=== PATIENT | male | born 1950 | race Caucasian/White ===

== ENCOUNTER 2020-08-31 07:54 | Day surgery (SDC) | payer MEDICARE, OTHER, SELFPAY ==
--- NOTE | 2020-08-25 15:43 | EKG12_ITS ---
Test Reason : PREOP Blood Pressure : / mmHG Vent. Rate : 080 BPM Atrial Rate : 080 BPM P-R Int : 138 ms QRS Dur : 072 ms QT Int : 370 ms P-R-T Axes : 032 -05 034 degrees QTc Int : 426 ms Normal sinus rhythm Normal ECG Confirmed by ZAFAR CHURCH, MICHELLE ([id number]), news video editor GRECIA NELSON ([id number]) on 08/31/2020 10:51:33 AM Referred By: Oleksandr Major Confirmed By:BISI STEPHEN MD
[2020-08-31] VITALS (12 sets, daily range): BP systolic 133–166; BP diastolic 78–97; PULSE 68–75; RESP 16–17; TEMP 36.3–37.2; O2SAT 95–100; BMI 31.0
[2020-08-31 08:22] LABS: Hematocrit 45.1 % (40-54); Hemoglobin 14.8 g/dL (13.0-16.5); Mean Corp Hgb Conc 32.8 g/dL (32-36); Mean Corpuscular Hgb 29.8 pg (27.0-32.0); Mean Corpuscular Volume 90.7 fL (80-94); Mean Platelet Vol. 8.7 fl (6.2-12.0); Platelet Count 298 K/mm3 (150-450); RBC Distribution Width SD 42.6 fl (35.1-43.9); Red Blood Count 4.97 M/mm3 (4.6-6.2); White Blood Count 8.3 K/mm3 (4.4-11.0)
[2020-08-31] MEDS: Lactated Ringers 1,000 ML 100 ML IV (08:49)
[2020-08-31 09:00] LABS: Anion Gap 5 (5-15); BUN 24 mg/dL (7-18); BUN/Creat Ratio 13.8 RATIO (10-20); Calcium,Total 9.3 mg/dL (8.5-10.1); Chloride 105 mmol/L (98-107); Creatinine, Serum 1.74 mg/dL (0.70-1.30); EST Glomerular Filtration Rate 41 mL/min (>60); Est Glom Filt Rate - Afr Amer 50 mL/min (>60); Estimated Creatinine Clearance 43.37 ml/min; Glucose 138 mg/dL (74-106); Potassium 4.1 mmol/L (3.5-5.1); Sodium Level 139 mmol/L (136-145)
[2020-08-31] MEDS: Cefazolin 2 GM in 0.9% Normal Saline 100 ML IV (09:48)
--- NOTE | 2020-08-31 10:00 | PROS_PTH ---
PATIENT: JONN CRESPO LOC: [facility] [place] U#:[id number] AGE/SX: 70/M ROOM: RE08/31/[address]: Dr. Oleksandr Major MD : [id number] BED: DIS: 09/01/2020 SPEC #: [id number] RECD: 08/31/20 11:55 STATUS: RANDAL REQ #: [id number] ADRIA: 08/31/20 10:[address]: Oleksandr Major DEPT: SURGICAL PATHOLOGY RECD BY: Mariel Beckett ENTERED: 08/31/20 12:23 SP TYPE: TURP OTHR DR: Dr. Selvin Hutson, DO Tissues: A - Prostate, NOS B - Prostate, NOS Procedures: Surgery Specimen Level IV HEADER OPERATION: Cysto, TUR prostate, [place], finger-guided prostate biopsy PRE-OP DIAGNOSIS: BPH with retention TISSUE SUBMITTED: A - Prostate biopsy, B - Prostate pieces MICROSCOPIC DIAGNOSIS A. Prostate, core biopsy: Prostatic tissue, negative for malignancy. Focal basal cell hyperplasia. B. Prostate pieces, TUR: Benign prostatic hyperplasia, glandular and stromal type. Focal acute and chronic inflammation. KEVYN:vamshi 09/01/20 COMMENT Clinical correlation and appropriate follow up are necessary. MICROSCOPIC DESCRIPTION Slides are reviewed. GROSS DESCRIPTION A - Received in fixative is one container labeled with the patient's name and designated prostate biopsy. The specimen consists of two elongated fragments of hanna soft tissue measuring 1 to 2 cm in length and 0.1 cm in diameter. The specimen is totally submitted in one cassette. B - Received is one container labeled with the patient's name and designated prostate pieces. The specimen consists of multiple irregular fragments of pink-hanna, rubbery, soft tissue that in aggregate weigh 4.6 gm and measure in aggregate 6.5 x 6.5 x 2 cm. A minute piece of brown round stone is also noted measuring 0.1 cm in greatest dimension. The entire soft tissue is submitted in one cassette. The stone is for gross identification only. The entire specimen is submitted in 12 cassettes. / SJ:vamshi 08/31/20 TC:5 CPT: 49378 x2
--- NOTE | 2020-08-31 10:00 | PCM.HP.STD ---
History of Present Illness Date of Admission: 08/31/20 Chief Complaint: BPH with obstruction The patient is a 70 year old male with a history of BPH with obstruction and also nodular prostate today we can proceed with a TURP and a prostate biopsy Past Medical History Allergies No Known Allergies Allergy (Verified 08/31/20 08:25) Home Medications: Ambulatory Orders Medication Instructions Recorded Acetaminophen [Tylenol Extra 1,000 mg PO DAILY 08/26/20 Strength] Surgical History: no surgical history Smoking Status: Never smoker Tobacco Use: Non-smoker Review of Systems Constitutional: Denies: Chills, Fever, Weight Change HEENT: Denies: Head Aches, Sinus Congestion, Sinus Drainage Cardiovascular: Denies: Chest Pain, Palpitations Respiratory: Denies: Cough, Shortness of breath at rest, Sputum production Gastrointestinal: Denies: Abdominal Pain, Nausea, Vomiting Genitourinary: Denies: Dysuria Musculoskeletal: Denies: Joint Pain, Joint Tenderness Skin: Denies: Rash, Wounds Neurological: Denies: Numbness, Tingling, Focal weakness Psychiatric: Denies: Anxiety, Depression, Homicidal Ideations, Suicidal Ideations Hematologic/ Lymphatic: Denies: Easy Bruising, Easy Bleeding VTE Information - Inpt Only VTE Present on Admission: No - Physical Exam Vitals/I&O's: Vital Signs Temp Pulse Resp BP Pulse Ox 98.9 F 71 16 158/93 H 97 08/31/20 08:29 08/31/20 08:29 08/31/20 08:29 08/31/20 08:29 08/31/20 08:29 Oxygen Delivery Method Room Air Weight: 106.7 kg Body Mass Index (BMI) 31.0 General: Alert, Oriented x3, Cooperative HEENT: Atraumatic, PERRLA, EOMI, Normocephalic Neck: Supple, No JVD, Negative Carotid Bruits Lungs: Clear to auscultation, Normal air movement Cardiovascular: Regular rate, No murmurs Abdomen: Bowel Sounds Present, Soft, Non Tender Extremities: No edema, Capillary Refill Less than 3 Seconds Skin: No rashes, No breakdown Musculoskeletal: No Tenderness to Palpation of Joints or Extremities Neurological: Cranial nerves II-XII grossly intact Psych/Mental Status: Normal Affect, Appropriate Laboratory Results 08/31/20 08:05: WBC 8.3, RBC 4.97, Hgb 14.8, Hct 45.1, MCV 90.7, MCH 29.8, MCHC 32.8, RDW Std Deviation 42.6, RDW Coeff of Saadia 13.0, Plt Count 298, MPV 8.7 08/31/20 08:05: Sodium 139, Potassium 4.1, Chloride 105, Carbon Dioxide 29.0, Anion Gap 5, BUN 24 H, Creatinine 1.74 H, Estim Creat Clear Calc 43.37, Est GFR (MDRD) Af Amer 50 L, Est GFR (MDRD) Non-Af 41 L, BUN/Creatinine Ratio 13.8, Glucose 138 H, Calcium 9.3 Current Medications Cefazolin Sodium 2 gm/ Sodium (Chloride) 110 mls @ 150 mls/hr IV PREOP ONE Stop: 08/31/20 10:43 Lactated Ringer's () 1,000 mls @ 100 mls/hr IV .Q10H CURT Last Admin: 08/31/20 08:49 Dose: 100 mls/hr Documented by: Assessment/Plan Plan to proceed with a TURP and a prostate biopsy.
--- NOTE | 2020-08-31 10:51 | DCINST_ITS ---
Discharge Diet: Light diet - advance as tolerated Discharge Activity: Return to Normal Activity Call your doctor if your incision/area has: Sudden Increased Bleeding Suture Line Care: Avoid Pulling/Pushing, Avoid Pinching/Bending Instructions: Transurethral Resection of the Prostate (TURP): Home Recovery Allergies/Adverse Reactions: Allergies No Known Allergies Allergy (Verified 08/31/20 08:25) Medications to take at Discharge Acetaminophen [Tylenol Extra Strength] 1,000 mg PO DAILY 08/26/20 Primary Care Physician: Selvin Hutson DO [Primary Care Provider] - Test Results: Test results from this visit will be discussed in further detail at your follow- up appointment, if applicable. Please Follow Up With: Oleksandr Major MD When: in 2 weeks, please call to make an appointment.
--- NOTE | 2020-08-31 10:53 | OP.PCM_ITS ---
Report of Operation Date of Procedure: 08/31/20 Pre-Operative Diagnosis: BPH with obstruction, nodular prostate Post-Operative Diagnosis: Same Surgery/Procedure Performed:: Transurethral resection of the prostate, transrectal prostate biopsy Description of Surgical Findings:: 70-year-old male was taken back to the operating room. After smooth induction of general anesthesia he was placed in dorsolithotomy.. The penis and testicles were prepped and draped in usual sterile fashion. Went into the bladder with a 24 [place] noncontinuous flow resectoscope. He had a very firm prostate on examination. Very hard nodular prostate concerning for cancer. Inside the prostatic channel a lot of obstructive tissue between the verumontanum and the bladder neck. I then marked out the verumontanum for the resection. I then inspected the bladder identified the right and left ureteral orifice. I then proceeded with the resection of the prostate resecting the prostate and the base the right and left and very carefully the apex and the and the roof of the prostate. At the wrist resection was complete he had open channel from the sphincter all the way into the bladder sphincter was intact both the left and right ureteral orifice were intact. I then placed the catheter on continuous bladder irrigation. The prostate chips were sent off as specimen. I then obtained biopsies of the prostate using finger guided technique transrectally th is was accomplished without any difficulty. Ascites also biopsy as well. Patient acetic was being reversed taken back to PACU in the condition. Type of Anesthesia:: General Drains: pedroza - Admit VTE Documentation VTE Present on Admission: No VTE Mechan Device Prophylaxis: SCD's
[2020-08-31] MEDS: 0.45% Normal Saline 1,000 ML 75 ML IV (13:15)
[2020-08-31] MEDS: Ciprofloxacin 400 MG/200 ML BAG 200 MG IV (18:00)
[2020-08-31] MEDS: Docusate Sodium 100 MG Capsule PO (21:07)
[2020-09-01 01:05] VITALS: BP 126/75; PULSE 71; RESP 16; TEMP 37.1; O2SAT 94
[2020-09-01] MEDS: 0.45% Normal Saline 1,000 ML 75 ML IV (03:36)
[2020-09-01 05:00] VITALS: BP 131/76; PULSE 60; RESP 16; TEMP 36.6; O2SAT 93
[2020-09-01] MEDS: Ciprofloxacin 400 MG/200 ML BAG 200 MG IV (05:07)
[2020-09-01] MEDS: Acetaminophen 500 MG Tablet PO (05:07)
[2020-09-01 06:44] LABS: Hematocrit 40.9 % (40-54); Hemoglobin 13.3 g/dL (13.0-16.5); Mean Corp Hgb Conc 32.5 g/dL (32-36); Mean Corpuscular Hgb 29.5 pg (27.0-32.0); Mean Corpuscular Volume 90.7 fL (80-94); Mean Platelet Vol. 8.7 fl (6.2-12.0); Platelet Count 226 K/mm3 (150-450); RBC Distribution Width SD 43.2 fl (35.1-43.9); Red Blood Count 4.51 M/mm3 (4.6-6.2); White Blood Count 6.9 K/mm3 (4.4-11.0)
[2020-09-01 07:07] LABS: Anion Gap 5 (5-15); BUN 20 mg/dL (7-18); BUN/Creat Ratio 13.3 RATIO (10-20); Calcium,Total 8.4 mg/dL (8.5-10.1); Chloride 103 mmol/L (98-107); EST Glomerular Filtration Rate 49 mL/min (>60); Est Glom Filt Rate - Afr Amer 59 mL/min (>60); Estimated Creatinine Clearance 50.31 ml/min; Glucose 139 mg/dL (74-106); Potassium 3.9 mmol/L (3.5-5.1); Sodium Level 135 mmol/L (136-145)
[2020-09-01 08:04] VITALS: PULSE 66; O2SAT 75
--- NOTE | 2020-09-01 08:16 | NURSING ---
Per oliver Blum to D/C pedroza. Pt tolerated well. 30 cc normal saline removed from balloon. Small amount of blood noted upon D/C. Pt instructed to call when ready urinate.
[2020-09-01 09:26] VITALS: BP 145/84; PULSE 66; RESP 18; O2SAT 95
[2020-09-01 09:31] VITALS: TEMP 36.7
[2020-09-01] MEDS: Docusate Sodium 100 MG Capsule PO (09:52)
[2020-09-01] MEDS: Pantoprazole Sodium 20 MG Tablet PO (09:52)
[2020-09-01 12:56] VITALS: BP 153/93; PULSE 79; RESP 18; TEMP 36.7; O2SAT 96
== END 2020-09-01 07:27 | disposition home or self-care (01) ==
LOC: SDC 07:56 → AC 08:01 → PCU 13:17
PROVIDERS: Anesthesiology; PCP Family Medicine; Referring Provider Urology; Visit Provider Urology
PROC: (CPT 52601; principal; 2020-08-31 09:50)
DX: N40.3 Nodular prostate with lower urinary tract symptoms (principal); N40.1 Benign prostatic hyperplasia with lower urinary tract symptoms; N41.0 Acute prostatitis; N41.1 Chronic prostatitis; N13.8 Other obstructive and reflux uropathy; R33.8 Other retention of urine; R35.0 Frequency of micturition; N43.0 Encysted hydrocele; Z20.828 Contact with and (suspected) exposure to other viral communicable diseases
CPT/HCPCS: 00914; 52601; 55700; 36415; 80048; 85027; 87635; 88305; 93005; C9803; J7120; J0744; U0003

== ENCOUNTER → 2020-12-26 09:05 | Outpatient (CLI) | payer MEDICARE, OTHER, SELFPAY ==
[2020-08-31 13:04] VITALS: BMI 31.0
[2020-12-26 10:37] LABS: PSA,Total - Annual Screen 1.04 ng/mL (0.00-4.00)
== END ==
PROVIDERS: PCP Family Medicine; Referring Provider Urology; Visit Provider Urology
DX: Z12.5 Encounter for screening for malignant neoplasm of prostate (principal)
CPT/HCPCS: 36415; 84153; G0103

== ENCOUNTER 2022-01-04 10:32 | Outpatient (CLI) | payer MEDICARE, OTHER, SELFPAY ==
[2022-01-04 12:08] LABS: PSA,Total- Diagnostic 2.69 ng/mL (0.0-4.0)
== END 2022-01-04 23:59 | disposition home or self-care (01) ==
LOC: LAB 10:36
PROVIDERS: PCP Family Medicine; Referring Provider Registered Nurse; Visit Provider Registered Nurse
DX: N40.1 Benign prostatic hyperplasia with lower urinary tract symptoms (principal)
CPT/HCPCS: 36415; 84153

== ENCOUNTER → 2023-01-22 | Outpatient (CLI) | payer MEDICARE, OTHER, SELFPAY | END | disposition home or self-care (01) | LOC: LAB 13:41 | PROVIDERS: PCP Family Medicine; Referring Provider Registered Nurse; Visit Provider Registered Nurse | DX: Z12.5 Encounter for screening for malignant neoplasm of prostate (principal) | CPT/HCPCS: 36415; 84153; G0103 ==

== ENCOUNTER → 2024-01-27 | Outpatient (CLI) | payer MEDICARE, OTHER, SELFPAY ==
[2024-01-27 15:46] LABS: PSA,Total - Annual Screen 2.52 ng/mL (0.00-4.00)
--- OUTSIDE RECORDS SUMMARY | 2024-01-27 19:52 | XMS RPT_ITS | CCD ---
Author Name Unknown Address [facility] [address] [place] [address] Organization [facility] Care Team Providers Care Frame Fixer Name Role Phone MARSHALL LARIOS Unavailable Unavailable CARYLMARSHALL Unavailable Unavailable CARYLMARSHALL Unavailable Unavailable CARYL DO, DR MARSHALL Cheung Primary Care Physician CARYL DO, DR MARSHALL Cheung Primary Care Physician CARYL DO, DR MARSHALL Cheung Attending Unavailabl e CARYL DO, DR MARSHALL Cheung Primary Care Unavailabl e CARYL DO, DR MARSHALL Cheung Attending Unavailabl e CARYL DO, DR MARSHALL Cheung Primary Care Unavailabl e ROXIE ROBLES Attending Unavailable CARYL DO, DR MARSHALL Cheung Primary Care Unavailabl e CARYL DO, DR MARSHALL Cheung Attending Unavailabl e CARYL DO, DR MARSHALL Cheung Primary Care Unavailabl e Medications Current Medications Medication Drug Class(es) Dates Sig (Normalized) Sig (Original) acetaminophen 500 mg oral tablet (6 sources) Start: 09-10-2019 take 1 dose by mouth once daily Tylenol Dose : 500 mg =, Oral, qDay, 0 Refill(s) Start Date: 09/10/19 Status: Ordered DME MISCellaneous (4 sources) Start: 07-11-2023 DME MISCellaneous See Instructions, alcohol pads. check sugar once daily E11.65, # 50 EA, 5 Refill(s), Pharmacy: [facility]/pharmacy #[id number], 178, cm, 07/11/23 11:39:00 EDT, Height, 108.3, kg, 07/11/23 11:39:00 EDT, Dosing Weight Start Date: 07/11/23 Status: Ordered Problems Problem Classification Problem Date Documented Date Episodic/Chronic Abdominal pain (6 sources) Pain in male pelvis 08-18-2020 Episodic Chronic kidney disease (2 sources) Chronic kidney disease stage 3 07-11-2023 Chronic Diabetes mellitus with complications (6 sources) Chronic kidney disease stage 3 due to type 2 diabetes mellitus; Translations: [Hyperlipidemia due to type 2 diabetes mellitus] 07-11-2023 Chronic Diabetes mellitus without complication (6 sources) Diabetes mellitus; Translations: [Type 2 diabetes mellitus] Onset: 09-19-2023 07-11-2023 Chronic Hyperplasia of prostate (6 sources) Large prostate 08-23-2020 Chronic Osteoarthritis (6 sources) Osteoarthritis of left knee joint 09-07-2019 Chronic Unclassified (8 sources) Encounter for screening for malignant neoplasm of prostate; Translations: [Encounter for screening for cardiovascular disorders] Onset: 05-24-2017 11-07-2022 Episodic Urinary tract infections (6 sources) Urinary tract infectious disease 08-18-2020 Episodic Results Test Name Value Interpretation Reference Range Facil ity Vital Signs Date Time Vital Sign Value Performing Clinician Faci lity 11-22-2022 15:30-0500 Diastolic Blood Pressure Non-Invasive [address] ROXIE ROBLES MD [facility] 11-22-2022 15:30-0500 Heart rate 80 /min DR ROXIE ROBLES MD [facility] 11-22-2022 15:30-0500 Respiratory rate 18 /min DR ROXIE ROBLES MD [facility] 11-22-2022 15:30-0500 Systolic Blood Pressure Non-Invasive [address] ROXIE ROBLES MD [facility] 11-22-2022 15:22-0500 Diastolic Blood Pressure Non-Invasive [address] ROXIE ROBLES MD [facility] 11-22-2022 15:22-0500 Heart rate 72 /min DR ROXIE ROBLES MD [facility] 11-22-2022 15:22-0500 Respiratory rate 16 /min DR ROXIE ROBLES MD [facility] 11-22-2022 15:22-0500 Systolic Blood Pressure Non-Invasive [address] ROXIE ROBLES MD [facility] 11-22-2022 15:15-0500 Heart rate 72 /min DR ROXIE ROBLES MD [facility] 11-22-2022 15:15-0500 Respiratory Rate - Anes 15 br/min DR ROXIE ROBLES MD [facility] 11-22-2022 15:10-0500 Diastolic Blood Pressure Non-Invasive [address] ROXIE ROBLES MD [facility] 11-22-2022 15:10-0500 Respiratory Rate - Anes 16 br/min DR ROXIE ROBLES MD [facility] 11-22-2022 15:10-0500 Systolic Blood Pressure Non-Invasive [address] ROXIE ROBLES MD [facility] 11-22-2022 15:05-0500 Respiratory Rate - Anes 18 br/min DR ROXIE ROBLES MD [facility] 11-22-2022 12:04-0500 Blood Pressure Cuff Size DR ROXIE ROBLES MD [facility] 11-22-2022 12:04-[address] ROXIE ROBLES MD [facility] 11-22-2022 12:04-[address] ROXIE ROBLES MD [facility] 11-22-2022 12:04-0500 Body height [address] ROXIE ROBLES MD [facility] 11-22-2022 12:04-0500 Body temperature 98.6 [degF] DR ROXIE ROBLES MD [facility] 11-22-2022 12:04-0500 Body weight [address] ROXIE ROBLES MD [facility] 11-22-2022 12:04-0500 Body weight 33.88 kg/m2 DR ROXIE ROBLES MD [facility] 11-22-2022 12:04-0500 Heart rate 93 /min DR ROXIE ROBLES MD [facility] 11-22-2022 12:04-0500 Respiratory rate 17 /min DR ROXIE ROBLES MD [facility] Encounters Encounter Date Encounter Type Care Provider Facility Start: 01-13-2024 End: 01-13-2024 ambulatory ROXIE ROBLES Facility:[facility] Start: 10-21-2023 End: 10-22-[address] MARSHALL LARIOS DO Facility:[facility] Start: 10-21-2023 End: 10-21-[address] MARSHALL LARIOS DO [facility] Start: 09-19-[address] MARSHALL LARIOS DO Fa cility:[facility] Start: 09-19-2023 End: 09-23-[address] MARSHALL LARIOS DO [facility] Start: 06-14-2023 End: 06-15-[address] MARSHALL LARIOS DO Facility:[facility] Start: 06-14-2023 End: 06-14-[address] MARSHALL LARIOS DO [facility] Start: 11-22-2022 End: 11-22-[address] ROXIE ROBLES MD [facility] Start: 05-29-2022 End: 05-29-[address] MARSHALL LARIOS DO [facility] Start: 01-05-2022 End: 01-05-[address] PAULINA ALLEN MD [facility] Start: 05-24-2017 End: 05-25-2017 Ambulatory MARSHALL LARIOS Facility:[facility] Procedures Date Procedure Procedure Detail Performing Clinician Start: 11-22-[address] ROXIE ROBLES MD Start: 08-31-[address] PAULINA ALLEN MD Immunizations Immunization Date Immunization Notes Care Provider [facility] 10-06-2023 RSV vaccine preF3, recombinant DR MARSHALL LARIOS DO [facility] 08-05-2023 influenza virus vaccine, unspecified formulation DR MARSHALL LAROIS DO [facility] 08-05-[address] MARSHALL LARIOS DO [facility] 07-27-2022 influenza virus vaccine, unspecified formulation DR MARSHALL LARIOS DO [facility] 10-17-2021 SARS-CoV-2 (COVID-19 ) Ad26 vaccine, recombinant DR MARSHALL LARIOS DO [facility] 08-07-2021 influenza virus vaccine, unspecified formulation DR MARSHALL LARIOS DO [facility] 01-24-2021 SARS-CoV-2 (COVID-19 ) Ad26 vaccine, recombinant DR MARSHALL LARIOS DO [facility] 09-01-[address] PAULINA ALLEN MD [facility] Payers Date Payer Category Payer Medicare [id number] 2016 Unknown [id number] 1950 Unknown [id number] 1950 Unknown [id number] 1950 Unknown [id number] 1950 Unknown [id number] Social History Date Type Detail Facility Start: 09-10-2019 Never smoked t obacco (finding) [facility] Sex Assigned At Male [facility] Medical Equipment Procedure Code Equipment Code Equipment Origin al Text Equipment Identifier Dates See Instructions , test strips. test sugar once daily. E11.65, # 30 EA, 11 Refill(s), Pharmacy: [facility]/pharmacy #[id number], 178, cm, 07/11/23 11:39:00 EDT, Height, 108.3, kg, 07/11/23 11:39:00 EDT, Dosing Weight Start: 07-11-2023 See Instructions , .lancets. check sugar once daily. E11.65, # 50 EA, 5 Refill(s), Pharmacy: [facility]/pharmacy #[id number], 178, cm, 07/11/23 11:39:00 EDT, Height, 108.3, kg, 07/11/23 11:39:00 EDT, Dosing Weight Start: 07-11-2023 See Instructions , test strips. test sugar once daily. E11.65, # 30 EA, 11 Refill(s), [id number], 178, cm, 07/11/23 11:39:00 EDT, Height, 108.3, kg, 07/11/23 11:39:00 EDT, Dosing Weight Start: 07-11-2023 See Instructions , .lancets. check sugar once daily. E11.65, # 50 EA, 5 Refill(s), [id number], 178, cm, 07/11/23 11:39:00 EDT, Height, 108.3, kg, 07/11/23 11:39:00 EDT, Dosing Weight Start: 07-11-2023 Functional Status Date Assessment Result Facility 11-22-2022 Functional Status Precautions maintained [facility] 11-22-2022 Functional Status Less than 8 hours [facility] Mental Status Date Assessment Result Facility 11-22-2022 Mental Status Orientation Oriented x 4 [facility] Clinical Notes 11-22-2022 LaboratoryLaboratory Note Date & Type Note Facility 11-22-2022 Hospital Discharg e instructions Patient Education 11/22/2022 15:36:42 Monitored Anesthesia Care, Care After Monitored Anesthesia Care, Care After These instructions provide you with information about caring for yourself after your procedure. Your health care provider may also give you more specific instructions. Your treatment has been planned according to current medical practices, but problems sometimes occur. Call your health care provider if you have any problems or questions after your procedure. What can I expect after the procedure? After your procedure, you may: Feel sleepy for several hours. Feel clumsy and have poor balance for several hours. Feel forgetful about what happened after the procedure. Have poor judgment for several hours. Feel nauseous or vomit. Have a sore throat if you had a breathing tube during the procedure. Follow these instructions at home: For at least 24 hours after the procedure: Have a responsible adult stay with you. It is important to have someone help care for you until you are awake and alert. Rest as needed. Do not: ?Participate in activities in which you could fall or become injured. ?Drive. ?Use heavy machinery. ?Drink alcohol. ?Take sleeping pills or medicines that cause drowsiness. ?Make important decisions or sign legal documents. ?Take care of children on your own. Eating and drinking Follow the diet that is recommended by your health care provider. If you vomit, drink water, juice, or soup when you can drink without vomiting. Make sure you have little or no nausea before eating solid foods. General instructions Take hjvs-vqn-swkmizg and prescription medicines only as told by your health care provider. If you have sleep apnea, surgery and certain medicines can increase your risk for breathing problems. Follow instructions from your health care provider about wearing your sleep device: ?Anytime you are sleeping, including during daytime naps. ?While taking prescription pain medicines, sleeping medicines, or medicines that make you drowsy. If you smoke, do not smoke without supervision. Keep all follow-up visits as told by your health care provider. This is important. Contact a health care provider if: You keep feeling nauseous or you keep vomiting. You feel light-headed. You develop a rash. You have a fever. Get help right away if: You have trouble breathing. Summary For several hours after your procedure, you may feel sleepy and have poor judgment. Have a responsible adult stay with you for at least 24 hours or until you are awake and alert. This information is not intended to replace advice given to you by your health care provider. Make sure you discuss any questions you have with your health care provider. Document Released: 02/24/2017 Document Revised: 02/02/2019 Document Reviewed: 02/24/2017 [employer] Patient Education 2020 [employer] 11/22/2022 15:36:42 Colon Polyps Colon Polyps Polyps are tissue growths inside the body. Polyps can grow in many places, including the large intestine (colon). A polyp may be a round bump or a mushroom-shaped growth. You could have one polyp or several. Most colon polyps are noncancerous (benign). However, some colon polyps can become cancerous over time. Finding and removing the polyps early can help prevent this. What are the causes? The exact cause of colon polyps is not known. What increases the risk? You are more likely to develop this condition if you: Have a family history of colon cancer or colon polyps. Are older than 50 or older than 45 if you are . Have inflammatory bowel disease, such as ulcerative colitis or Crohn's disease. Have certain hereditary conditions, such as: ?Familial adenomatous polyposis. ?Castrejon syndrome. ?Turcot syndrome. ?Peutz Jeghers syndrome. Are overweight. Smoke cigarettes. Do not get enough exercise. Drink too much alcohol. Eat a diet that is high in fat and red meat and low in fiber. Had childhood cancer that was treated with abdominal radiation. What are the signs or symptoms? Most polyps do not cause symptoms. If you have symptoms, they may include: Blood coming from your rectum when having a bowel movement. Blood in your stool. The stool may look dark red or black. Abdominal pain. A change in bowel habits, such as constipation or diarrhea. How is this diagnosed? This condition is diagnosed with a colonoscopy. This is a procedure in which a lighted, flexible scope is inserted into the anus and then passed into the colon to examine the area. Polyps are sometimes found when a colonoscopy is done as part of routine cancer screening tests. How is this treated? Treatment for this condition involves removing any polyps that are found. Most polyps can be removed during a colonoscopy. Those polyps will then be tested for cancer. Additional treatment may be needed depending on the results of testing. Follow these instructions at home: Lifestyle Maintain a healthy weight, or lose weight if recommended by your health care provider. Exercise every day or as told by your health care provider. Do not use any products that contain nicotine or tobacco, such as cigarettes and e-cigarettes. If you need help quitting, ask your health care provider. If you drink alcohol, limit how much you have: ?0 1 drink a day for women. ? 0 2 drinks a day for men. Be aware of how much alcohol is in your drink. In the [place] one drink equals one 12 oz bottle of beer (355 mL), one 5 oz glass of wine (148 mL), or one 1 oz shot of hard liquor (44 mL). Eating and drinking Eat foods that are high in fiber, such as fruits, vegetables, and whole grains. Eat foods that are high in calcium and vitamin D, such as milk, cheese, yogurt, eggs, liver, fish, and broccoli. Limit foods that are high in fat, such as fried foods and desserts. Limit the amount of red meat and processed meat you eat, such as hot dogs, sausage, aguilar, and lunch meats. General instructions Keep all follow-up visits as told by your health care provider. This is important. ?This includes having regularly scheduled colonoscopies. ?Talk to your health care provider about when you need a colonoscopy. Contact a health care provider if: You have new or worsening bleeding during a bowel movement. You have new or increased blood in your stool. You have a change in bowel habits. You lose weight for no known reason. Summary Polyps are tissue growths inside the body. Polyps can grow in many places, including the colon. Most colon polyps are noncancerous (benign), but some can become cancerous over time. This condition is diagnosed with a colonoscopy. Treatment for this condition involves removing any polyps that are found. Most polyps can be removed during a colonoscopy. This information is not intended to replace advice given to you by your health care provider. Make sure you discuss any questions you have with your health care provider. Document Released: 07/31/2005 Document Revised: 02/19/2019 Document Reviewed: 02/19/2019 [employer] Patient Education 2020 [place] [employer]. 11/22/2022 15:36:42 Colonoscopy, Adult, Care After, Pwlf-hw-Zguf Colonoscopy, Adult, Care After This sheet gives you information about how to care for yourself after your procedure. Your doctor may also give you more specific instructions. If you have problems or questions, call your doctor. What can I expect after the procedure? After the procedure, it is common to have: A small amount of blood in your poop for 24 hours. Some gas. Mild cramping or bloating in your belly. Follow these instructions at home: General instructions For the first 24 hours after the procedure: ?Do not drive or use machinery. ?Do not sign important documents. ?Do not drink alcohol. ?Do your daily activities more slowly than normal. ?Eat foods that are soft and easy to digest. Take gxwj-key-uxsridu or prescription medicines only as told by your doctor. To help cramping and bloating: Try walking around. Put heat on your belly (abdomen) as told by your doctor. Use a heat source that your doctor recommends, such as a moist heat pack or a heating pad. ?Put a towel between your skin and the heat source. ?Leave the heat on for 20 30 minutes. ?Remove the heat if your skin turns bright red. This is especially important if you cannot feel pain, heat, or cold. You can get burned. Eating and drinking Drink enough fluid to keep your pee (urine) clear or pale yellow. Return to your normal diet as told by your doctor. Avoid heavy or fried foods that are hard to digest. Avoid drinking alcohol for as long as told by your doctor. Contact a doctor if: You have blood in your poop (stool) 2 3 days after the procedure. Get help right away if: You have more than a small amount of blood in your poop. You see large clumps of tissue (blood clots) in your poop. Your belly is swollen. You feel sick to your stomach (nauseous). You throw up (vomit). You have a fever. You have belly pain that gets worse, and medicine does not help your pain. Summary After the procedure, it is common to have a small amount of blood in your poop. You may also have mild cramping and bloating in your belly. For the first 24 hours after the procedure, do not drive or use machinery, do not sign important documents, and do not drink alcohol. Get help right away if you have a lot of blood in your poop, feel sick to your stomach, have a fever, or have more belly pain. This information is not intended to replace advice given to you by your health care provider. Make sure you discuss any questions you have with your health care provider. Document Released: 12/07/2011 Document Revised: 09/04/2018 Document Reviewed: 07/29/2017 [employer] Patient Education 2020 [place] [employer] Follow Up Care 11/08/2022 10:36:14 With:ROXIE ROBLES MD, Clinical Gastroenterology Address: [address] [place] [address] [place] [address]- [phone] When: Unknown Comments:follow up as needed. call office for appointment for results [facility] 11-22-2022 Summary of episod e note Discharge Instructions Thank you for allowing [facility] to assist you with your healthcare needs. The following is important discharge information regarding your hospital visit. Your Care Team MARSHALL LARIOS DO What to do next Scheduled Follow-Up Appointments Appointment Type When With Where [facility] 05/30/2023 08:30 AM EDT MARSHALL LARIOS DO [facility] Follow Up Appointments Follow Up with ROXIE ROBLES MD, Clinical Gastroenterology When Why: follow up as needed. call office for appointment for results Where: [address] [facility] [place] [address]- [phone] The Following Activity and Diet Have Been Ordered for You Discharge Activity - Ordered -- Other, Follow the post-operative/post-procedure activity instructions provided by your physician's office., 11/22/22 15:17:00 EST Discharge Diet - Ordered -- Follow the post-operative/post-procedure diet instructions provided by your physician's office., 11/22/22 15:17:00 EST The Following Equipment Has Been Ordered for You No qualifying data available. The Following Treatments Have Been Ordered for You Discharge Labs No qualifying data available. Discharge Radiology No qualifying data available. Other Therapies No qualifying data available. Post Acute Orders No qualifying data available. Someone Will Contact You Regarding These Home Health Referrals No home referrals have been ordered for you. No one will call you. Allergies NKA Medications Please ask your primary doctor or pharmacist before taking any other medication not listed, including over the counter drugs, herbal medications, vitamins and or supplements as they may interact with your home medications. What How Much When Instructions Last Dose Unchanged acetaminophen (Tylenol) 500 Milligram by mouth Once a day Unchanged polyethylene glycol 3350 with electrolytes (PEG-3350 with Electrolytes (Eqv-GoLYTELY) oral powder for reconstitution) See instructions Take as directed 1 day before colonoscopy. Follow instructions as provided by your GI provider at [facility]. Please take this list to your next doctor s visit. Bring all medications you take, including over the counter medications, herbals and other supplements with you to your doctor s visit. Patients and families are reminded to discard old lists and to update any records with all medication providers or retail pharmacies. Education Materials Monitored Anesthesia Care, Care After These instructions provide you with information about caring for yourself after your procedure. Your health care provider may also give you more specific instructions. Your treatment has been planned according to current medical practices, but problems sometimes occur. Call your health care provider if you have any problems or questions after your procedure. What can I expect after the procedure? After your procedure, you may: Feel sleepy for several hours. Feel clumsy and have poor balance for several hours. Feel forgetful about what happened after the procedure. Have poor judgment for several hours. Feel nauseous or vomit. Have a sore throat if you had a breathing tube during the procedure. Follow these instructions at home: For at least 24 hours after the procedure: Have a responsible adult stay with you. It is important to have someone help care for you until you are awake and alert. Rest as needed. Do not: ? Participate in activities in which you could fall or become injured. ? Drive. ? Use heavy machinery. ? Drink alcohol. ? Take sleeping pills or medicines that cause drowsiness. ? Make important decisions or sign legal documents. ? Take care of children on your own. Eating and drinking Follow the diet that is recommended by your health care provider. If you vomit, drink water, juice, or soup when you can drink without vomiting. Make sure you have little or no nausea before eating solid foods. General instructions Take aggi-zpz-gyxngrv and prescription medicines only as told by your health care provider. If you have sleep apnea, surgery and certain medicines can increase your risk for breathing problems. Follow instructions from your health care provider about wearing your sleep device: ? Anytime you are sleeping, including during daytime naps. ? While taking prescription pain medicines, sleeping medicines, or medicines that make you drowsy. If you smoke, do not smoke without supervision. Keep all follow-up visits as told by your health care provider. This is important. Contact a health care provider if: You keep feeling nauseous or you keep vomiting. You feel light-headed. You develop a rash. You have a fever. Get help right away if: You have trouble breathing. Summary For several hours after your procedure, you may feel sleepy and have poor judgment. Have a responsible adult stay with you for at least 24 hours or until you are awake and alert. This information is not intended to replace advice given to you by your health care provider. Make sure you discuss any questions you have with your health care provider. Document Released: 02/24/2017 Document Revised: 02/02/2019 Document Reviewed: 02/24/2017 [employer] Patient Education 2020 [employer] Colon Polyps Polyps are tissue growths inside the body. Polyps can grow in many places, including the large intestine (colon). A polyp may be a round bump or a mushroom-shaped growth. You could have one polyp or several. Most colon polyps are noncancerous (benign). However, some colon polyps can become cancerous over time. Finding and removing the polyps early can help prevent this. What are the causes? The exact cause of colon polyps is not known. What increases the risk? You are more likely to develop this condition if you: Have a family history of colon cancer or colon polyps. Are older than 50 or older than 45 if you are . Have inflammatory bowel disease, such as ulcerative colitis or Crohn's disease. Have certain hereditary conditions, such as: ? Familial adenomatous polyposis. ? Castrejon syndrome. ? Turcot syndrome. ? Peutz Jeghers syndrome. Are overweight. Smoke cigarettes. Do not get enough exercise. Drink too much alcohol. Eat a diet that is high in fat and red meat and low in fiber. Had childhood cancer that was treated with abdominal radiation. What are the signs or symptoms? Most polyps do not cause symptoms. If you have symptoms, they may include: Blood coming from your rectum when having a bowel movement. Blood in your stool. The stool may look dark red or black. Abdominal pain. A change in bowel habits, such as constipation or diarrhea. How is this diagnosed? This condition is diagnosed with a colonoscopy. This is a procedure in which a lighted, flexible scope is inserted into the anus and then passed into the colon to examine the area. Polyps are sometimes found when a colonoscopy is done as part of routine cancer screening tests. How is this treated? Treatment for this condition involves removing any polyps that are found. Most polyps can be removed during a colonoscopy. Those polyps will then be tested for cancer. Additional treatment may be needed depending on the results of testing. Follow these instructions at home: Lifestyle Maintain a healthy weight, or lose weight if recommended by your health care provider. Exercise every day or as told by your health care provider. Do not use any products that contain nicotine or tobacco, such as cigarettes and e-cigarettes. If you need help quitting, ask your health care provider. If you drink alcohol, limit how much you have: ? 0 1 drink a day for women. ? 0 2 drinks a day for men. Be aware of how much alcohol is in your drink. In the [place] one drink equals one 12 oz bottle of beer (355 mL), one 5 oz glass of wine (148 mL), or one 1 oz shot of hard liquor (44 mL). Eating and drinking Eat foods that are high in fiber, such as fruits, vegetables, and whole grains. Eat foods that are high in calcium and vitamin D, such as milk, cheese, yogurt, eggs, liver, fish, and broccoli. Limit foods that are high in fat, such as fried foods and desserts. Limit the amount of red meat and processed meat you eat, such as hot dogs, sausage, aguilar, and lunch meats. General instructions Keep all follow-up visits as told by your health care provider. This is important. ? This includes having regularly scheduled colonoscopies. ? Talk to your health care provider about when you need a colonoscopy. Contact a health care provider if: You have new or worsening bleeding during a bowel movement. You have new or increased blood in your stool. You have a change in bowel habits. You lose weight for no known reason. Summary Polyps are tissue growths inside the body. Polyps can grow in many places, including the colon. Most colon polyps are noncancerous (benign), but some can become cancerous over time. This condition is diagnosed with a colonoscopy. Treatment for this condition involves removing any polyps that are found. Most polyps can be removed during a colonoscopy. This information is not intended to replace advice given to you by your health care provider. Make sure you discuss any questions you have with your health care provider. Document Released: 07/31/2005 Document Revised: 02/19/2019 Document Reviewed: 02/19/2019 [employer] Patient Education 2020 [place] [employer]. Colonoscopy, Adult, Care After This sheet gives you information about how to care for yourself after your procedure. Your doctor may also give you more specific instructions. If you have problems or questions, call your doctor. What can I expect after the procedure? After the procedure, it is common to have: A small amount of blood in your poop for 24 hours. Some gas. Mild cramping or bloating in your belly. Follow these instructions at home: General instructions For the first 24 hours after the procedure: ? Do not drive or use machinery. ? Do not sign important documents. ? Do not drink alcohol. ? Do your daily activities more slowly than normal. ? Eat foods that are soft and easy to digest. Take gzfb-mxp-txualye or prescription medicines only as told by your doctor. To help cramping and bloating: Try walking around. Put heat on your belly (abdomen) as told by your doctor. Use a heat source that your doctor recommends, such as a moist heat pack or a heating pad. ? Put a towel between your skin and the heat source. ? Leave the heat on for 20 30 minutes. ? Remove the heat if your skin turns bright red. This is especially important if you cannot feel pain, heat, or cold. You can get burned. Eating and drinking Drink enough fluid to keep your pee (urine) clear or pale yellow. Return to your normal diet as told by your doctor. Avoid heavy or fried foods that are hard to digest. Avoid drinking alcohol for as long as told by your doctor. Contact a doctor if: You have blood in your poop (stool) 2 3 days after the procedure. Get help right away if: You have more than a small amount of blood in your poop. You see large clumps of tissue (blood clots) in your poop. Your belly is swollen. You feel sick to your stomach (nauseous). You throw up (vomit). You have a fever. You have belly pain that gets worse, and medicine does not help your pain. Summary After the procedure, it is common to have a small amount of blood in your poop. You may also have mild cramping and bloating in your belly. For the first 24 hours after the procedure, do not drive or use machinery, do not sign important documents, and do not drink alcohol. Get help right away if you have a lot of blood in your poop, feel sick to your stomach, have a fever, or have more belly pain. This information is not intended to replace advice given to you by your health care provider. Make sure you discuss any questions you have with your health care provider. Document Released: 12/07/2011 Document Revised: 09/04/2018 Document Reviewed: 07/29/2017 [employer] Patient Education 2020 [place] [employer]. Additional Information VACCINATE! IT SAVES LIVES! Members of the community who have not yet received the COVID-19 vaccine and would like to receive it can visit one of [facility] vaccine clinics. There are many vaccine clinic locations within the [facility]. For locations and available times, please visit [email or web address] [email or web address] It is important to note that some COVID mobile vaccine clinics are held outdoors and may be canceled in rainy or stormy conditions. To learn more about pediatric vaccinations (ages 5-11), we invite you to visit the [facility] webpage. [email or web address] To learn more about the COVID-19 vaccine, we invite you to visit the [facility] website for a list of frequently asked questions. [email or web address] [facility] Patient Portal Access Instructions: Stay connected with your healthcare team and access your personal medical information anytime with the [facility] Patient Portal.If you would like a full copy of your medical records, please contact the [facility] Medical Records Department, Saturday through Saturday between 8a.m. and 4:30p.m. Please follow the directions below to access the portal: 1.Access the email account you provided upon registration to the hospital.2.Look for an invitation email from [facility].3.Open the email and access the invitation link: Accept Invitation to [facility]4.Fill in the required dominguez to create your account. Sign into www.[facility] with your username and password that you created in the above steps to stay up to date. You can then view a summary of results, a summary of your visits, and the ability to download your summaries to your computer or send the information securely to a physician. Remember that your healthcare information is confidential, so carefully consider who you will allow to register on the [facility] Patient Portal for access to your information. You can also access the [facility] Patient Portal on the [employer]. Simply click on Health Records under Health Data and then click on the [employer] logo. HOW TO SAFELY DISPOSE OF PRESCRIPTION MEDICATIONS Please use one of the following methods to safely dispose of your unused medications. 1.Use a drug disposal kit: the drug disposal pouch allows you to safely discard your old and unused drugs. Ask your nurse to give you one when you are discharged.2.Visit a local take-back location: Many local pharmacies and police departments have programs that collect old and unwanted prescription drugs. Call your local pharmacy or go to http://Bitex.la.Hobby/3W2Cg1i to find one close to you.3.Make use of household items: Use cat litter or old coffee grounds to dispose medications if other options are not available. Mix your drugs with these household products, seal them in an airtight container and throw it into the garbage. Call [facility]: [phone] to be sure your drugs can be disposed of in this way. Some medicines may require a different approach.4.Never flush your medications down the toilet. IF YOU HAVE BEEN PRESCRIBED AN OPIOID FOR PAIN If you have been prescribed an opioid (such as hydrocodone, oxycodone or morphine), it is critical to understand the possible side effects and risks of opioid pain medications. Even when taken as directed, opioids can have several side effects including: Tolerance, meaning you might need to take more of a medication for the same pain relief. Nausea, vomiting and/or constipation. Sleepiness, dizziness, dry mouth, confusion, depression or itching. Physical dependence, meaning you have withdrawal symptoms when a medication is stopped, can develop within a few days. KNOW YOUR RESPONSIBILITIES It is important to know exactly how much and how often to take the opioid pain medications you are prescribed. Never take opioids in higher amounts or more often than prescribed. Do not combine opioids with alcohol or other drugs that cause drowsiness, such as benzodiazepines, also known as benzos, including diazepam and alprazolam, muscle relaxants or sleep aids. Never sell or share prescription opioids. This is illegal. Store opioids in a secure place and out of reach of others (including children, family, friends and visitors). The last page of this document has been signed and retained as a CHART COPY. Signatures Patient Education Materials Monitored Anesthesia Care, Care After Colon Polyps Colonoscopy, Adult, Care After, Qmge-nw-Kvgs Medication Leaflets My discharge plan and instructions have been reviewed and explained to me and CHERIE Miles CLYDE E understand my current condition and have read and understand these discharge instructions. I have received a written copy of the plan/instructions. If I have questions, I am aware that I should contact my doctor. Patient/Life Skills Coach Signature: Date/Time: Relationship to Patient: Witness Name/Signature: Date/Time: [facility] 11-22-2022 Anesthesiology Consult note Patient: JONN CRESPO Age: 72 years Sex: Male : 1950 Associated Diagnoses: None Author: DEACON BEE Assessment Postanesthesia assessment Mental status: alert & oriented x 4. Respiratory function: lungs are clear to auscultation. Respiratory support: none. CV function: Normal rate. Cardiovascular support: none. Pain. Nausea status: denies nausea. Postoperative hydration status: within normal limits. Digitally Signed by DEACON BEE on 11/22/2022 03:20 PM [facility] 11-22-2022 History and physical note Date of Service 11/22/2022 History and Physical Update I have examined the patient; reviewed the History and Physical and there are no changes to the History and Physical unless noted below. He has had a positive Cologuard. He has had some narrow caliber stool but no other GI symptoms. The note from the physician elementary assistant principal was reviewed. There are no changes on the examination. He is alert oriented. Lungs are clear. Regular rhythm. Benign abdomen. Consent conference was held and he agrees to proceed. Consent conference was held and he agrees to proceed. Digitally Signed by ROXIE ROBLES MD on 11/22/2022 02:48 PM [facility] 11-22-2022 Anesthesiology Consult note Patient: JONN CRESPO Age: 72 years Sex: Male : 1950 Associated Diagnoses: None Author: HANS ANAND Preoperative Information Time of last food or liquid consumption: 11/22/2022 09:00:00 Anesthesia history Patient's history: negative. Family's history: negative. Health Status Allergies: Allergic Reactions (Selected) NKA, Allergies (1) ActiveReaction NKANone Documented Current medications: (Selected) Inpatient Medications Ordered Lactated Ringers Infusion 1,000 mL: 20 mL/hr, Intravenous Prescriptions Prescribed PEG-3350 with Electrolytes (Eqv-GoLYTELY) oral powder for reconstitution: See Instructions, Take as directed 1 day before colonoscopy. Follow instructions as provided by your GI provider at [facility]., 1 EA, 0 Refill(s) Documented Medications Documented Tylenol: 500 mg, Oral, qDay, 0 Refill(s), Medications (1) Active Scheduled: (0) Continuous: (1) Lactated Ringers 1,000 mL 1,000 mL, Intravenous, 20 mL/hr PRN: (0) Problem list: Medical Prostate enlargement / SNOMED CT 977441288 / Confirmed Osteoarthritis of left knee / SNOMED CT 8399972463 / Confirmed Male pelvic pain / SNOMED CT 0327429933 / Confirmed Positive colorectal cancer screening using Cologuard test / SNOMED CT 7173214274 / Confirmed Urinary tract infection / SNOMED CT 997148631 / Confirmed, Active Problems (5) Male pelvic pain Osteoarthritis of left knee Positive colorectal cancer screening using Cologuard test Prostate enlargement Urinary tract infection Histories Past Medical History: No active or resolved past medical history items have been selected or recorded. Family History: Cancer Father () Sister () Comments: 12/28/2020 14:15 GURMEET Berrios bile duct cancer Hypertension Mother () Sister () Heart attack Mother () Diabetes Mother () Procedure history: Colonoscopy ([id number]) on 11/22/2022 at 72 Years. TURP - Transurethral resection of prostate ([id number]) on 08/31/2020 at 70 Years. Comments: 12/28/2020 14:24 GURMEET Berrios With biopsy Knee replacement ([id number]) on 09/05/2015 at 65 Years. Comments: 09/07/2019 11:51 EDT - Nataly Carlisle CMA Total. - Dr. Kee Xie ([id number]) in 2004 at 54 Years. Comments: 09/07/2019 11:52 TAYLOR - Nataly Carlisle CMA Reconstruction Social History Social & Psychosocial Habits Alcohol 09/07/2019 Use: Never Employment/School 09/10/2019 Status: Retired Substance Abuse 09/07/2019 Use: Never Tobacco 09/10/2019 Tobacco Use: Never (less than 100 in l, No tobacco/smoke exposure Exercise 09/10/2019 Exercise type: Biking, physical therapy exercises. Duration (average number of minutes): 30 Times per week: Daily Home/Environment 09/10/2019 Lives In Single level home Nutrition/Health 09/07/2019 Caffeine intake amount: soda x 2/day . Physical Examination Vital Signs 11/22/2022 12:04 EST Temperature Temporal Artery 37.0 DegC Apical Heart Rate 93 bpm Respiratory Rate 17 br/min Systolic Blood Pressure Non-Invasive 160 mmHg >HHI Diastolic Blood Pressure Non-Invasive 94 mmHg HI Blood Pressure Method Automatic Blood Pressure Location Left arm Blood Pressure Cuff Size Large Vital Signs(last 24 hrs) Last Charted Resp Rate 17 br/min (NOV 22 12:04) SBPC 160mmHg (NOV 22 12:04) DBPH 94mmHg (NOV 22 12:04) BMI33.88 (NOV 22 12:04) Measurements from flowsheet : Measurements 11/22/2022 12:04 EST Height 181 cm Admission Weight 111 kg Weight Method Stated [place] Body Weight 75.90 kg BSA Admission 2.3 Body Mass Index 33.88 kg/m2 Pain assessment: Pain Assessment 11/22/2022 12:04 EST Primary Pain Intensity 0 Pain Scale Type 0-10 Pain scale . General: Alert and oriented. Airway: Normal temporomandibular joint mobility. Mallampati classification: II (soft palate, fauces, uvula visible). Head: Normocephalic. Dentition Evaluation: Intact. Neck: Supple. Respiratory: Lungs are clear to auscultation. Cardiovascular: Normal rate. Heart Sounds: Normal. Gastrointestinal: Soft. Musculoskeletal Normal range of motion. Integumentary: Intact. Neurologic: Alert. Review / Management Results review: No qualifying data available , Lab results 11/22/2022 12:14 EST Lactated Ringers Injection Begin Bag 1,000 mL mL 11/22/2022 12:04 EST Designated Person #1 We May Share PHI cyndi/ [phone] Designated Person #1 Relationship Daughter Height 181 cm Admission Weight 111 kg Weight Method Stated [place] Body Weight 75.90 kg BSA Admission 2.3 Body Mass Index 33.88 kg/m2 Temperature Temporal Artery 37.0 DegC Apical Heart Rate 93 bpm Respiratory Rate 17 br/min Systolic Blood Pressure Non-Invasive 160 mmHg >HHI Diastolic Blood Pressure Non-Invasive 94 mmHg HI Blood Pressure Method Automatic Blood Pressure Location Left arm Blood Pressure Cuff Size Large Primary Pain Intensity 0 Pain Scale Type 0-10 Pain scale Heart Rhythm Regular Oxygen Therapy Room air Oxygen Saturation 99 % Abdomen Description Non-distended, Soft, Rounded Status N/A IV Present Present Characteristics of Speech Clear Level of Consciousness Alert Affect/Behavior Appropriate Orientation Oriented x 4 Sensory Deficits None Infectious Disease Symptoms Cough Infectious Disease Recent Exposure No Alcohol and Drug Use No Employee of Institutional Living No Health Care Employee No History of Exposure to TB No History of Positive Chest X-Ray for TB No History of Positive TB Skin Test No Homeless No Known Immunosuppression No Recent Immigrant No Resident of Institutional Living No Bloody Sputum No Fatigue No Fever No Loss of Appetite No Night Sweats No Persistent Cough > 3 Weeks No Weight Loss No Allergies No Music Journalist On Yes Colon Prep Results Excellent Consent Form Signed Yes Patient Dressed In Hospital gown Pre-op Preparation Glasses removed History & Physical Update On Chart Yes History & Physical On Chart Yes Bowel Prep Completed Yes Obstructive Sleep Apnea Assess Completed No Barriers to Learning None evident Teaching Method Explanation Preferred Written Language Chadian Preferred Spoken Language Chadian Information Given by Patient Patient's Current Physicians Caryl Discharge To, Anticipated Home with family care Activity Status ADL Awake, Repositions self NPO Status Less than 8 hours Standard Safety ID band on, Bed in low position, Wheels locked, Visitor at bedside, Safety level maintained Prev Test Positive/Diagnosis w/COVID-19 No Current Quarantine/Isolated any Illness No Any Contact with Sick Animals/Birds No Traveled Anywhere in Last 30 Days No Allergy Band on and Verified No Patient ID Band on and Verified Yes Implants Verified Yes Pacemaker/AICD Verified No Anesthesia Consent Signed Yes Last Fluid Intake 11/22/2022 8:30 Last Food Intake 11/20/2022 22:00 Last Void 11/22/2022 11:00 N/A Personal Devices, Patient Valuables None Admission Note-Nursing Procedure/Therapy Intake . Assessment and Plan [place] Society of Anesthesiologists (ASA) physical status classification: Class II. Anesthetic Preoperative Plan Premedication: None. Anesthetic technique: MAC. Induction: intravenously. Postoperative pain management: Per surgeon. Risks discussed: nausea, vomiting, headache, sore throat, dental injury, hypotension, allergic reaction, serious complications. Informed consent: signed by patient. Digitally Signed by HANS ANAND on 11/22/2022 01:12 PM [facility] Evaluation + Plan note No data available for this section [facility] Evaluation + Plan note Future Appointments Appointment Date:05/30/2023 08:00:00 AM Scheduled Provider:MARSHALL LARIOS DO Location:[facility] Appointment Type:[facility] Evaluation + Plan note Future Appointments Appointment Date:05/30/2023 08:30:00 AM Scheduled Provider:MARSHALL LARIOS DO Location:[facility] Appointment Type:[facility] Well[facility] Evaluation + Plan note Future Appointments Appointment Date:06/15/2024 09:00:00 AM Scheduled Provider:MARSHALL LARIOS DO Location:[facility] Appointment Type:[facility] Evaluation + Plan note Future Appointments Appointment Date:03/19/2024 08:00:00 AM Scheduled Provider:MARSHALL LARIOS DO Location:[facility] Appointment Type:[facility] Appointment Date:06/15/2024 09:00:00 AM Scheduled Provider:MARSHALL LARIOS DO Location:[facility] Appointment Type:[facility] Wellness Medicare Future Scheduled TestsBasic Metabolic Panel 09/20/23A1C Hemoglobin 03/19/24Lipid Profile 03/19/24Complete Metabolic Panel 03/19/24 [facility] Evaluation + Plan note Future Appointments Appointment Date:03/19/2024 08:00:00 AM Scheduled Provider:MARSHALL LARIOS DO Location:[facility] Appointment Type:[facility] Appointment Date:06/15/2024 09:00:00 AM Scheduled Provider:MARSHALL LARIOS DO Location:[facility] Appointment Type:[facility] Wellness Medicare Future Scheduled [id number] Hemoglobin 03/19/24Lipid Profile 03/19/24Complete Metabolic Panel 03/19/24 [facility] Hospital Discharge instructions No data available for this section [facility] Progress note No data available for this section [facility] Summary Purpose Family History No Family History Records Found No data available for this section No data available for this section No data available for this section No Family History Records Found Advance Directives No Advanced Directives Records FoundNo Advanced Directives Records Found Additional Source Comments (unrecognized sect ion and content) No Status Records FoundNo Status Records Found INFORMATION SOURCE (unrecogn ized section and content) DATE CREATED AUTHOR AUTHOR'S ORGANIZ ATION 01/20/2024 [facility] ([place] Care Team (unrecognized sect ion and content) Care Team Personnel Name: MARSHALL LARIOS DO Position: P4 Physician - Primary Care Med Service: Active Provider Member Role: Primary Care Physician Address: Address: [place] [address] Care Team Related Persons Name: TETO CRESPO Address: Home [address] [place], [place] [id number] Care Team Personnel Name: MARSHALL LARIOS DO Position: P4 Physician - Primary Care Member Role: Primary Care Physician Address: Address: [address] Care Team Related Persons Name: TETO CRESPO Address: Home [address] [place], [place] [phone] Patient Care team informatio n (unrecognized section and content) Care Team Personnel Name: MARSHALL LARIOS DO Position: P4 Physician - Primary Care Member Role: Primary Care Physician Address: Address: [facility] [place] [address] Care Team Related Persons Name: TETO CRESPO Address: Home [address] [place] [id number] Care Team Personnel Name: MARSHALL LARIOS DO Position: P4 Physician - Primary Care Member Role: Primary Care Physician Address: Address: [facility] [place] [address] Care Team Related Persons Name: TETO CRESPO Address: [place] [address] [place] [phone] Care Team Personnel Name: MARSHALL LARIOS DO Position: P4 Physician - Primary Care Member Role: Primary Care Physician Address: Address: [address] [place] [address] Care Team Related Persons Name: TETO CRESPO Address: Home [address] [place] [phone] FOR RECORDS PERTAINING TO PATIENTS WHO ARE OR HAVE BEEN ENROLLED IN A CHEMICAL DEPENDENCY/SUBSTANCEABUSE PROGRAM, SOME INFORMATION MAY BE OMITTED. This clinical summary was aggregated from multiple sources. Caution should be exercised in using it in the provision of clinical care. This summary normalizes information from multiple sources, and as a consequence, information in this document may materially change the coding, format and clinical context of patient data. In addition, data may be omitted in some cases. CLINICAL DECISIONS SHOULD BE BASED ON THE PRIMARY CLINICAL RECORDS. [employer] provides no warranty or guarantee of the accuracy or completeness of information in this document.
== END | disposition home or self-care (01) ==
LOC: LAB 14:06
PROVIDERS: PCP Family Medicine; Referring Provider Nurse Practitioner; Visit Provider Nurse Practitioner
DX: Z12.5 Encounter for screening for malignant neoplasm of prostate (principal)
CPT/HCPCS: 36415; 84153; G0103

== ENCOUNTER → 2025-01-28 | Outpatient (CLI) | payer MEDICARE, OTHER, SELFPAY ==
[2025-01-28 15:48] LABS: PSA,Total - Annual Screen 1.58 ng/mL (0.02-4.00)
== END | disposition home or self-care (01) ==
LOC: LAB 14:13
PROVIDERS: PCP Family Medicine; Referring Provider Urology; Visit Provider Urology
DX: Z12.5 Encounter for screening for malignant neoplasm of prostate (principal)
CPT/HCPCS: 36415; 84153; G0103